=== PATIENT | female | born 1940 | race Caucasian/White ===

== ENCOUNTER 2018-01-31 08:26 | Day surgery (SDC) | END 2018-01-31 12:38 | disposition home or self-care (01) ==

== ENCOUNTER 2018-10-09 06:07 | Day surgery (SDC) | END 2018-10-09 11:36 | disposition home or self-care (01) ==

== ENCOUNTER 2018-11-05 06:39 | Day surgery (SDC) | payer MEDICARE, OTHER ==
[~2018-11-05] VITALS: Ht 157.5 cm; Wt 60.1 kg
[2018-11-05] VITALS (13 sets, daily range): BP systolic 139–169; BP diastolic 66–92; PULSE 67–100; RESP 13–24; Ht 157.5 cm; Wt 60.1 kg
[~2018-11-05 06:39] MED LIST: AMLO2.5T78 PO; ATOR20TA38 PO; CHLO25TA2 PO; LOSA100T15 PO; METO-335 PO; TIMOLOL 0.5% 5 ML OPH LEFT EYE ONE
[2018-11-05] MEDS ORDERED: PROPOFOL 200 MG INJ ONE (07:00)
[2018-11-05] MEDS ORDERED: LIDOCAINE 2% (SDV) 5 ML INJ ONE ×2 (07:00→09:05)
[2018-11-05] MEDS ORDERED: ASPI81TA52 PO (08:25)
[2018-11-05] MEDS ORDERED: DICL50TA11 PO (08:26)
[2018-11-05] MEDS ORDERED: MOXIFLOXACIN 0.5% 3 ML OPH OPER ONE (09:00)
[2018-11-05] MEDS ORDERED: NEPAFENAC 0.1% 3 ML OPH OPER SCH (09:00)
[2018-11-05] MEDS ORDERED: CYCLOPENTOLATE 2% 2 ML OPH OPER SCH (09:00)
[2018-11-05] MEDS ORDERED: PHENYLephrine 10% 5 ML OPH OPER SCH (09:00)
[2018-11-05] MEDS ORDERED: BUPIVACAINE 0.75% (MPF) 10 ML INJ ONE (09:04)
[2018-11-05] MEDS ORDERED: TIMOLOL 0.5% 5 ML OPH ONE (09:05)
[2018-11-05] MEDS ORDERED: EPINEPHrine 1 MG INJ ONE (09:05)
[2018-11-05] MEDS ORDERED: LIDOCAINE 1% (MPF) 10 ML INJ ONE (09:05)
[2018-11-05] MEDS ORDERED: SODIUM BICARBONATE (IV ADD) 50 ML ONE (09:23)
--- NOTE | 2018-11-05 10:29 | PREAC ---
Date/Time of Note Date/Time of Note DATE: 11/05/18 TIME: 10:26 Anesthesia Eval and Record Evaluation Time Pre-Procedure Interview DATE: 11/05/18 TIME: 10:26 Age 78 Sex female NPO: 8 hrs Preoperative diagnosis left eye catarcat Planned procedure phacoemulsification of cataract with lens implantation of posterior chamber IOL of left eye Past Medical History Past Medical History: Includes Cardio: HTN, Dyslipidemia Endo: Diabetes Surgery & Anesthesia Issues No known issue Meds Anticoagulation: No Beta Sara within 24 hr: Yes Reported Medications Diclofenac Sodium* (Diclofenac Sodium*) 50 Mg Tablet.dr, 50 MG PO BID, #60 TAB 11/05/18 Aspirin (Low Dose Aspirin) 81 Mg Tablet.dr, 81 MG PO DAILY, #30 TAB 11/05/18 Chlorthalidone* (Chlorthalidone*) 25 Mg Tablet, 25 MG PO DAILY, TAB 01/31/18 Metoprolol Succinate* (Toprol XL*) 25 Mg Tab.sr.24h, 25 MG PO DAILY, #30 TAB 01/31/18 Atorvastatin Calcium* (Atorvastatin Calcium*) 20 Mg Tablet, 20 MG PO QHS, #30 TAB 01/31/18 Amlodipine Besylate* (Amlodipine Besylate*) 2.5 Mg Tablet, 2.5 MG PO DAILY, #30 TAB 01/31/18 Losartan Potassium* (Losartan Potassium*) 100 Mg Tablet, 100 MG PO DAILY, TAB 01/31/18 Current Medications Cyclopentolate HCl (Cyclogyl 2% Oph) 1 drop Q5 MIN X 3 OPER Last administered on 11/05/18at 10:14; Admin Dose 1 DROP; Start 11/05/18 at 09:00 Phenylephrine HCl (Ak-Dilate 10%) 1 drop Q5 MIN X3 OPER Last administered on 11/05/18at 10:14; Admin Dose 1 DROP; Start 11/05/18 at 09:00 Nepafenac ([place] Oph) 1 drop Q5 MIN X3 OPER Last administered on 11/05/18at 10:14; Admin Dose 1 DROP; Start 11/05/18 at 09:00 Meds reviewed: Yes Allergies Coded Allergies: No Known Allergy (Unverified , 11/05/18) Allergies Reviewed: Yes Labs/Studies Labs Reviewed: Reviewed by anesthesiologist test: N/A Studies: ECG (sr), CXR (nl) Pre-procedure Exam Last vitals Vital Signs Date Temp Pulse Resp B/P (MAP) Pulse Ox O2 O2 Flow FiO2 Time Delivery Rate 11/05/18 97.6 67 18 169/72 99 Room Air 09:58 (104) Airway: Adequate thyromental dist Mallampati: Mallampati I Teeth: Abnormal (no teeth) Lung: Normal Heart: Normal ASA Physical Status ASA physical status: 2 Emergency: None Planned Anesthetic General/MAC: MAC Planned Pain Management Parenteral pain med Pre-operative Attestations Prior to commencing anesthesia and surgery, the patient was re-evaluated, there was verification of: *The patient's identity *The results of appropriate recent lab work and preoperative vital signs *The above evaluation not changing prior to induction *Anesthetic plan, risk benefits, alternative and complications discussed with patient/family; questions answered; patient/family understands, accepts and wishes to proceed. KARLEY TITUS MD Nov 05, 2018 10:29
[2018-11-05] MEDS ORDERED: LABETALOL HCL 20MG INJ IV PRN (10:30)
[2018-11-05] MEDS ORDERED: DIPHENHYDRAMINE 50 MG INJ IV PRN (10:30)
[2018-11-05] MEDS ORDERED: ONDANSETRON 4 MG INJ IV PRN (10:30)
[2018-11-05] MEDS ORDERED: hydrALAzine 20 MG INJ IV PRN (10:30)
[2018-11-05] MEDS ORDERED: HYDROmorphONE 1 MG/5 ML IV SYRINGE IV PRN ×3 (10:30)
[2018-11-05] MEDS ORDERED: OXYCODONE/ACETAMINOPHEN (5/325) TAB PO PRN (10:30)
[2018-11-05] MEDS ORDERED: MEPERIDINE 25 MG INJ IV PRN (10:30)
[2018-11-05] MEDS ORDERED: FENTAnyl 50 MCG/ML VIAL ONE ×2 (10:45→11:29)
--- NOTE | 2018-11-05 10:47 | HPN ---
Date/Time of Note Date/Time of Note DATE: 11/05/18 TIME: 10:47 Interval H&P Admission Note Pt. seen H&P reviewed: No system changes GERARDO CANTU MD Nov 05, 2018 10:47
[2018-11-05] MEDS ORDERED: PROPOFOL 20 ML ONE ×2 (11:16→11:37)
[2018-11-05] MEDS ORDERED: METOCLOPRAMIDE 10 MG INJ ONE (11:40)
[2018-11-05] MEDS ORDERED: ONDANSETRON 4 MG INJ ONE (11:40)
[2018-11-05] MEDS ORDERED: EPHEDrine SULFATE 50 MG/5 ML SYG ONE (11:40)
--- NOTE | 2018-11-05 12:13 | SIPON ---
Date/Time of Note Date/Time of Note DATE: 11/05/18 TIME: 12:09 Operative Report Preoperative Diagnosis SENILE NUCLEAR SCLEROTIC CATARACT LEFT EYE Postoperative Diagnosis SAME Operation/Procedure Performed kpe WITH POSTERIOR CHAMBER LENS Surgeon see signature line clinical trial assistant NONE Anesthesia: general Estimated blood loss: none Transfusion Required none Specimen NONE Grafts/Implants POSTERIOR CHAMBER IMPLANT Complications none GERARDO CANTU MD Nov 05, 2018 12:13
--- NOTE | 2018-11-05 12:14 | PAC ---
Date/Time of Note Date/Time of Note DATE: 11/05/18 TIME: 12:13 Post-Anesthesia Notes Post-Anesthesia Note Last documented vital signs Vital Signs Date Temp Pulse Resp B/P (MAP) Pulse Ox O2 O2 Flow FiO2 Time Delivery Rate 11/05/18 98.5 92 18 177/69 99 face mask 8L 1207 Activity: WNL Respiratory function: WNL Cardiovascular function: WNL Mental status: Baseline Pain reasonably controlled: Yes Hydration appropriate: Yes Nausea/Vomiting absent: Yes TWIN RINCON Nov 05, 2018 12:14
--- NOTE | 2018-11-05 14:25 | OPR ---
DATE OF OPERATION: 11/05/2018 SURGEON: Gerardo Singh MD GRAPHIC COORDINATOR: None. ANESTHESIOLOGIST: PREOPERATIVE DIAGNOSIS: Senile nuclear sclerotic cataract left eye. POSTOPERATIVE DIAGNOSIS: Senile nuclear sclerotic cataract, left eye. OPERATION: Kelman phacoemulsification with posterior chamber implantation of intraocular lens, left eye. DESCRIPTION OF PROCEDURE: Following standard preparation and draping of the patient, a lid speculum was placed for immobilization of the lids. A SuperBlade incision was made at the corneal limbal junc tion for access into the anterior chamber. Approximately 0.03 mL of nonpreserved 1% Xylocaine was in stilled into the anterior chamber, and after approximately 5 to 10 seconds, this was replaced with Vi scoat. A clear corneal incision was then made using the 3.2 mm keratome, following which an anterior circular capsulorrhexis was made. The major portion of the lens cortex and nucleus were then disloc ated from the capsular bag using hydrodissection. The KPE tip was introduced into the eye and contro lling tumbling of the lens with a 2-handed technique, the major portion of the lens cortex and nucleu s was removed, maintaining the lens in the plane of the iris. The remaining cortical material was re moved via the irrigating aspirating instrument. The capsular bag and the anterior chamber were now r eformed using Viscoat. The proper power lens was then placed in the capsular bag. The viscoelastic was then removed from the eye and the eye reformed with balanced salt solution. One 10-0 Vicryl sutu re was then used to ensure closure of the corneal incision. The eye was reformed to normal pressure using balanced salt solution. The eye and cul-de-sacs were now simply flooded with 5% Betadine solut ion. One drop of Vigamox and 1 drop of Betagan solution were instilled into the eye. A light pressu re dressing was applied, and the patient was returned to the recovery room in satisfactory condition. Dictated By: GERARDO DURAN/STUART Conf#: [id number] DID#: [id number]
== END 2018-11-05 14:10 | disposition home or self-care (01) ==
LOC: SDS 06:39
PROVIDERS: ATTEND Ophthalmology
DX: H25.12 Age-related nuclear cataract, left eye (principal); I10 Essential (primary) hypertension; E78.5 Hyperlipidemia, unspecified; E11.9 Type 2 diabetes mellitus without complications
CPT/HCPCS: 66984; 82962; J0171; J2405; J2765; J3010; V2632

== ENCOUNTER 2019-03-19 07:06 | Day surgery (SDC) | payer MEDICARE, OTHER ==
[~2019-03-19] VITALS: Ht 157.5 cm; Wt 60.8 kg
[2019-03-19] VITALS (10 sets, daily range): BP systolic 136–169; BP diastolic 64–78; PULSE 58–85; RESP 12–16; Ht 157.5 cm; Wt 60.8 kg
[~2019-03-19 07:06] MED LIST changes: +ASPI81TA52 PO; +DICL50TA11 PO; +PHENYLephrine (100 MCG/ML) 10ML SYG ONE; +SEVOFLURANE 15 MIN ONE; -TIMOLOL 0.5% 5 ML OPH LEFT EYE ONE
[2019-03-19] MEDS ORDERED: ACETAMINOPHEN 1000MG/100ML IV 100 ML IVPB ONE (10:30)
[2019-03-19] MEDS ORDERED: CELECOXIB 200 MG CAP PO SCH (10:30)
[2019-03-19] MEDS ORDERED: DEXAMETHASONE 10 MG/ML 1 ML INJ IV SCH (10:30)
[2019-03-19] MEDS ORDERED: CEFAZOLIN 2 GM/50 ML (PMX) 50 ML IVPB SCH (10:30)
[2019-03-19] MEDS ORDERED: ONDANSETRON 4 MG INJ IV SCH (10:30)
[2019-03-19] MEDS ORDERED: PROPOFOL 20 ML ONE (10:38)
[2019-03-19] MEDS ORDERED: FENTAnyl 50 MCG/ML VIAL ONE (10:38)
[2019-03-19] MEDS ORDERED: MIDAZOLAM 1 MG/ML 2 ML INJ ONE (10:38)
[2019-03-19] MEDS ORDERED: ROPIVACAINE 0.5 % 30 ML VIAL ONE (10:38)
[2019-03-19] MEDS ORDERED: ROCURONIUM 50 MG INJ ONE (10:39)
[2019-03-19] MEDS ORDERED: TRANEXAMIC ACID 1,000 MG in SOD CHLORIDE 0.9% 100 ML IVPB ONE ×2 (11:00→13:00)
[2019-03-19] MEDS ORDERED: LANSOPRAZOLE 30 MG CAP PO SCH (11:00)
--- NOTE | 2019-03-19 12:06 | PREAC ---
Date/Time of Note Date/Time of Note DATE: 03/19/19 TIME: 12:04 Anesthesia Eval and Record Evaluation Time Pre-Procedure Interview DATE: 03/19/19 TIME: 12:04 Age 78 Sex female NPO: 8 hrs Preoperative diagnosis Patellar Bursitis Left Planned procedure Prepatellar Bursectomy Past Medical History Past Medical History: Includes Cardio: HTN, Dyslipidemia Endo: Diabetes Surgery & Anesthesia Issues No known issue Meds Anticoagulation: No Beta Sara within 24 hr: No Reason Beta Sara not given: Pt. not on B-Sara Reported Medications Diclofenac Sodium* (Diclofenac Sodium*) 50 Mg Tablet.dr, 50 MG PO BID, #60 TAB 11/05/18 Aspirin (Low Dose Aspirin) 81 Mg Tablet.dr, 81 MG PO DAILY, #30 TAB 11/05/18 Chlorthalidone* (Chlorthalidone*) 25 Mg Tablet, 25 MG PO DAILY, TAB 01/31/18 Metoprolol Succinate* (Toprol XL*) 25 Mg Tab.sr.24h, 25 MG PO DAILY, #30 TAB 01/31/18 Atorvastatin Calcium* (Atorvastatin Calcium*) 20 Mg Tablet, 20 MG PO QHS, #30 TAB 01/31/18 Amlodipine Besylate* (Amlodipine Besylate*) 2.5 Mg Tablet, 2.5 MG PO DAILY, #30 TAB 01/31/18 Losartan Potassium* (Losartan Potassium*) 100 Mg Tablet, 100 MG PO DAILY, TAB 01/31/18 Current Medications Celecoxib (Celebrex) 400 mg ONCE PO Last administered on 03/19/19at 10:40; Admin Dose 400 MG; Start 03/19/19 at 10:30; Stop 03/19/19 at 18:00 Dexamethasone (Decadron) 10 mg ONCE IV Last administered on 03/19/19at 10:51; Admin Dose 10 MG; Start 03/19/19 at 10:30; Stop 03/19/19 at 18:00 Ondansetron HCl (Zofran Inj) 4 mg ONCE IV Last administered on 03/19/19at 10:40; Admin Dose 4 MG; Start 03/19/19 at 10:30; Stop 03/19/19 at 18:00 Lansoprazole (Prevacid) 30 mg ONCE PO Last administered on 03/19/19at 10:40; Admin Dose 30 MG; Start 03/19/19 at 11:00; Stop 03/19/19 at 18:00 Tranexamic Acid 1000 mg/Sodium Chloride 110 ml @ 200 mls/hr ONCE ONCE IVPB ; Start 03/19/19 at 13:00; Stop 03/19/19 at 13:32 Meds reviewed: Yes Allergies Coded Allergies: No Known Allergy (Unverified , 03/19/19) Allergies Reviewed: Yes Labs/Studies Labs Reviewed: Reviewed by anesthesiologist Blood Bank Test 03/19/19 09:30 Antibody Screen NEGATIVE Blood Type A POSITIVE test: N/A Studies: ECG (n/a), CXR (n/a) Pre-procedure Exam Last vitals Vital Signs Date Temp Pulse Resp B/P (MAP) Pulse Ox O2 O2 Flow FiO2 Time Delivery Rate 03/19/19 97.6 68 16 169/74 98 Room Air 10:02 (105) Airway: Adequate mouth opening, Adequate thyromental dist Mallampati: Mallampati II Teeth: Normal Lung: Normal Heart: Normal ASA Physical Status ASA physical status: 3 Emergency: None Planned Anesthetic General/MAC: ETT, LMA Nerve block: Femoral (left) Planned Pain Management Single shot nerve block, Parenteral pain med Pre-operative Attestations Prior to commencing anesthesia and surgery, the patient was re-evaluated, there was verification of: *The patient's identity *The results of appropriate recent lab work and preoperative vital signs *The above evaluation not changing prior to induction *Anesthetic plan, risk benefits, alternative and complications discussed with patient/family; questions answered; patient/family understands, accepts and wishes to proceed. BALJEET QUIROZ MD March 19, 2019 12:06
[2019-03-19] MEDS ORDERED: TRANEXAMIC ACID 1GM/100ML(PMX) 200 ML ONE (12:15)
--- NOTE | 2019-03-19 12:36 | HPN ---
Date/Time of Note Date/Time of Note DATE: 03/19/19 TIME: 12:36 Interval H&P Admission Note Pt. seen H&P reviewed: No system changes Patient denies fever, chills, shortness of breath, chest pain, nausea/vomiting, constipation, diarrhea, numbness, and tingling. MUSCULOSKELETAL: Left lower extremity Skin intact except for previously noted calcium deposits in the subcutaneous tissue and skin. Sensation intact to light touch in a sural, saphenous, deep peroneal, superficial peroneal, medial and lateral plantar nerve distribution. Motor is intact, patient able to dorsiflex and plantarflex ankle and extend and flex great toe. Dorsalis Pedis pulse +2, Brisk capillary refill. Compartments are soft. Calves non-tender to palpation bilaterally. MARIETTA BENAVIDES MD March 19, 2019 12:36
[2019-03-19] MEDS ORDERED: BUPIVACAINE 0.5% (SDV) 30 ML INJ ONE (13:12)
[2019-03-19] MEDS ORDERED: CEFAZOLIN 1 GM INJ ONE (13:23)
[2019-03-19] MEDS ORDERED: ONDANSETRON 4 MG INJ ONE (13:23)
[2019-03-19] MEDS ORDERED: DEXAMETHASONE 4 MG/ML 5 ML INJ ONE (13:23)
[2019-03-19] MEDS ORDERED: EPHEDrine 25 MG/5 ML SYG IV PRN (13:30)
[2019-03-19] MEDS ORDERED: LABETALOL HCL 20MG INJ IV PRN (13:30)
[2019-03-19] MEDS ORDERED: MEPERIDINE 25 MG INJ IV PRN (13:30)
[2019-03-19] MEDS ORDERED: hydrALAzine 20 MG INJ IV PRN (13:30)
[2019-03-19] MEDS ORDERED: DIPHENHYDRAMINE 50 MG INJ IV PRN (13:30)
[2019-03-19] MEDS ORDERED: ONDANSETRON 4 MG INJ IV PRN (13:30)
[2019-03-19] MEDS ORDERED: OXYCODONE/ACETAMINOPHEN (5/325) TAB PO PRN (13:30)
[2019-03-19] MEDS ORDERED: HYDROmorphONE 1 MG/5 ML IV SYRINGE IV PRN ×2 (13:30)
[2019-03-19] MEDS ORDERED: FENTAnyl 50 MCG/ML VIAL IV PRN ×2 (13:30)
[2019-03-19] MEDS ORDERED: GLYCOPYRROLATE 0.4 MG INJ ONE (13:48)
[2019-03-19] MEDS ORDERED: NEOSTIGMINE 3 MG/3 ML SYRINGE ONE (13:48)
--- NOTE | 2019-03-19 14:00 | PDOCDIS ---
Discharge Instructions CONDITION [id number] Patient Condition: Kcynd0i Good HOME CARE INSTRUCTIONS: [id number] Diet Instructions: [id number] Regular ACTIVITY: [id number] Activity Restrictions: [id number] Slowly Increase Activity Avoid heavy lifting Keep Limb Elevated [id number] Bathing Restrictions: [id number] Shower (as long as original dressing is intact.) FOLLOW UP/APPOINTMENTS Follow-up Plan f/u as scheduled in ~2 weeks MARIETTA BENAVIDES MD March 19, 2019 14:00
--- NOTE | 2019-03-19 14:01 | PAC ---
Date/Time of Note Date/Time of Note DATE: 03/19/19 TIME: 14:01 Post-Anesthesia Notes Post-Anesthesia Note Last documented vital signs Vital Signs Date Temp Pulse Resp B/P (MAP) Pulse Ox O2 O2 Flow FiO2 Time Delivery Rate 03/19/19 98.0 13:42 03/19/19 98.3 68 16 169/74 98 Room Air 14:02 (105) Activity: WNL Respiratory function: WNL Cardiovascular function: WNL Mental status: Baseline Pain reasonably controlled: Yes Hydration appropriate: Yes Nausea/Vomiting absent: Yes BALJEET QUIROZ MD March 19, 2019 14:01
--- NOTE | 2019-03-19 14:37 | OPR ---
Date/Time of Note Date/Time of Note DATE: 03/19/19 TIME: 14:31 Operative Report Procedure Date: March 19, 2019 Preoperative Diagnosis Chronic calcified Left prepatellar bursitis Postoperative Diagnosis As above Operation/Procedure Performed Open excisional bursectomy 5 x 4 x 3 cm excision of skin 3 x 3 cm Surgeon see signature line Batter Out Renee HARP Anesthesia Type: general Tourniquet Time: 16 minutes Estimated Blood Loss: minimal Transfusion none Specimen Left chronic calcified prepatellar bursa Grafts/Implants none Complications none Pt Condition Post Procedure: stable Disposition: PACU Procedure Description Indications and consent: This is an 78-year-old female who presented to clinic with bilateral chronic calcified prepatellar bursitis. She had significant pain with kneeling and she had intermittent drainage of this calcinosis. Preoperative biopsy was performed before presenting to my clinic and a it was found to be benign. She underwent right knee prepatellar bursectomy last September. Now she would like to proceed with the left knee prepatellar bursectomy. Treatment options were discussed with the patient including nonoperative and operative. She wished to proceed with operative treatment and excision of the calcified bursa. She wished to start with her right knee. Benefits and risks were reviewed with the patient that include but not limited to complications from anesthesia, bleeding, infection, wound healing problems, recurrence, pain, stiffness, neurovascular injury, need for additional surgery. She understood these benefits and risks and wished to proceed with surgery. Procedure in detail: The patient was brought to the operating room. She was transferred to hospital bed to the operating table in supine position. All bony problems were well padded. At this time the patient was given general anesthetic by the anesthesiologist as well as an abductor canal block under ultrasound. This time the left lower external was prepped and draped in normal sterile fashion. A timeout was performed confirming the patient's name medical record number diagnosis procedure performed and laterality of procedure 2 g of Ancef was dosed. The tourniquet was inflated for a total of 16 minutes. The knee was flexed approximately 45 degrees using a sterile bump. A longitudinal incision was made over the patella. There were several large subcutaneous calc ium deposits that needed to be excised. Therefore the longitudinal incision included an ellipse around these subcutaneous deposits. This ellipse was 3 x 3 cm. Sharp dissection was taken down to the calcified bursa. The soft tissue appeared to look normal until reaching the bursa. The bursa was carefully shelled out with a combination of sharp and blunt dissection. There were areas where that the calcification did leak through the bursa. Calcification was a soft toothpaste-like consistency. Once the calcified bursa was excised further irrigation debridement of the remaining bursa was performed to remove all calcified deposits. 30 ml of Marcaine was injected subcutaneously. At this time the incision was closed with a 0 and 2-0 Vicryl interrupted sutures followed by skin arabella for skin. The wound was dressed with Aquacel Ag. All counts were correct x2. The left prepatellar bursa was sent to pathology for permanent. Disposition: Patient was transferred to PACU in stable condition. The patient will be weightbearing as tolerated. Plan is for her to be discharged home once she meets PACU protocol for same day surgery discharge. She be on aspirin 81 mg for 3 weeks. Oxycodone was given for pain management. She is to follow-up in clinic in 2 weeks. MARIETTA BENAVIDES MD March 19, 2019 14:37
== END 2019-03-19 15:48 | disposition home or self-care (01) ==
LOC: SDS 07:06
PROVIDERS: ATTEND Orthopaedic Surgery Adult Reconstructive Orthopaedic Surgery
DX: M70.42 Prepatellar bursitis, left knee (principal); I10 Essential (primary) hypertension; E11.9 Type 2 diabetes mellitus without complications; Z79.82 Long term (current) use of aspirin
CPT/HCPCS: 27340; 82962; 86850; 86900; 86901; J0131; J0690; J1100; J2370; J2405; J2710; J2795; J3010; 88304; J2250